=== PATIENT | female | born 1990 | race Caucasian/White ===

== ENCOUNTER → 2024-04-10 | Outpatient (CLI) | payer OTHER, SELFPAY ==
--- NOTE | 2024-04-10 16:00 | US_ITS ---
STUDY: SECOND AND THIRD TRIMESTER OBSTETRICAL ULTRASOUND REASON FOR EXAM: Female, 34 years old GROWTH 38 WKS TECHNIQUE: Transabdominal PRIOR ULTRASOUND: None. FINDINGS: There is a single intrauterine fetus. The fetus is in a cephalic presentation. There is demonstrated cardiac activity with a heart rate of 153 bpm. There is a normal amniotic fluid volume. The largest amniotic fluid pocket measures 9.9 cm. The amniotic fluid index (SHELLEY) is 22 cm. The placenta is anterior and not low-lying. There are Grade 2 placental changes. The cervix measures 3.2 cm in length. The adnexal regions are not visualized. BPD: 9.8 cm = 40 weeks, 0 day(s) HC: 35.5 cm = 41 weeks, 3 day(s) AC: 38 cm = 41 weeks, 5 day(s) FL: 7.1 cm = 36 weeks, 3 day(s) EGA by ultrasound: 40 weeks 1 day(s) WILFRED by ultrasound: 04/09/2024 Estimated weight: 4091 grams Weight percentile: 98% US/OB Limited With Biometrics IMPRESSION: Living intrauterine with estimated gestational age of 40 weeks and 1 day. Electronically Signed: Spencer Troncoso MD at 19:20 EDT ,
== END | disposition home or self-care (01) ==
LOC: US 15:59
PROVIDERS: Referring Provider Advanced Practice Midwife; Visit Provider Advanced Practice Midwife
DX: O99.013 Anemia complicating pregnancy, third trimester (principal); O09.93 Supervision of high risk pregnancy, unspecified, third trimester; O34.219 Maternal care for unspecified type scar from previous cesarean delivery; O26.843 Uterine size-date discrepancy, third trimester; Z3A.37 37 weeks gestation of pregnancy
CPT/HCPCS: 76816

== ENCOUNTER 2024-04-23 07:19 | Inpatient (IN) | payer OTHER, SELFPAY ==
[2024-04-23] VITALS (27 sets, daily range): BP systolic 107–145; BP diastolic 56–79; PULSE 24–111; RESP 14–18; TEMP 36.6–37.8; O2SAT 82–100; BMI 29.8
[2024-04-23] MEDS: Lactated Ringers 1,000 ML 50 ML IV (07:50)
[2024-04-23] MEDS: Oxytocin 15 Units/NS 250ml 15 UNITS/250 ML IV.SOLN 2 UNITS IV (07:52)
[2024-04-23 08:01] LABS: Absolute Lymphocyte Count 1.71 X10^3/uL (0.83-4.51); Absolute Neutrophil Count 7.2 X10^3/uL (2.0-7.7); Basophil# 0.05 X10^3/uL; Basophil% 0.5 % (0-1); Eosinophil# 0.16 X10^3/uL; Eosinophils% 1.6 % (0-5); Hematocrit 32.1 % (37-47); Hemoglobin 10.4 g/dL (12.0-15.0); Lymphocyte # 1.71 X10^3/ul (0.83-4.51); Lymphocyte % 17.2 % (19-41); Mean Corp Hgb Conc 32.4 g/dL (32-36); Mean Corpuscular Hgb 30.6 pg (27.0-32.0); Mean Corpuscular Volume 94.4 fL (81-99); Mean Platelet Vol. 11.1 fl (6.2-12.0); Monocyte# 0.59 X10^3/uL; Monocyte% 5.9 % (0-10); NRBC Flagged by Analyzer 0 % (0-5); Neutrophil # 7.18 X10^3/uL (2.7-7.7); Neutrophil % 72.1 % (47-70); Platelet Count 223 K/mm3 (150-450); RBC Distribution Width CV 17.3 % (11.6-14.6); RBC Distribution Width SD 58.9 fl (35.1-43.9)
--- NOTE | 2024-04-23 08:28 | HP.PCM.OB_ITS ---
HPI - General General Date of Admission: 04/23/24 Date of Service: 04/23/24 Chief Complaint: Induction of labor HPI Narrative UGO GALLARDO, is a 34 F who presents for induction of labor. She has had some irregular contractions. No gross vaginal bleeding. No leaking of fluid. complicated to date by history of previous section, anemia, heartburn and urinary tract infections during . She had a recent ultrasound that revealed estimated weight of approximate 4000 g and amniotic fluid volume with mild hide polyhydramnios with maximum vertical pocket of 9.9 cm. Maternal Data Information Final WILFRED: 04/24/24 Gestational age: 39 6/7 PFSH [facility] Medical History (Updated 04/23/24 @ 08:[address] Elza Melendez MD) Polyhydramnios Headache Home Medications ?Medication ?Instructions ?Recorded ?Last Taken ?Type acetaminophen 325 mg tablet 325 mg PO Q6H PRN pain 04/23/24 04/21/24 History (Aminofen) famotidine 20 mg tablet (Acid 20 mg PO DAILY 04/23/24 04/23/24 History Controller) ferrous sulfate 325 mg (65 mg 325 mg PO DAILY 04/23/24 04/21/24 History iron) tablet (Feosol) ondansetron HCl 4 mg tablet 4 mg PO PRN 04/23/24 04/18/24 History vit no.95-ferrous 1 tab PO DAILY 04/23/24 04/23/24 History fumarate 28 mg-folic acid 800 mcg tablet ( Multivitamins) Allergy/AdvReac Type Severity Reaction Status Date / Time No Known Allergies Allergy Verified 04/23/24 08:16 Surgical History (Updated 04/23/24 @ 08:[address] Elza Melendez MD) History of Social History (System 01/21/21 @ 13:46 by Rica Napoles) Smoking Status: Current every day smoker History Elective abortions Hx Para 1 Spontaneous abortions Hx # Term Pregnancies Ectopic pregnancies Hx # Pregnancies Multiple births # of living children ROS Constitutional Constitutional: Denies fatigue, fever(s) or malaise Eyes Eyes: Denies change in vision ENT HEENT: Denies dizziness or headache(s) Cardiovascular Cardiovascular: Denies chest pain, dyspnea or lightheadedness Respiratory/Chest Respiratory/Chest: Denies cough or dyspnea Gastrointestinal Gastrointestinal: Denies change in bowel habits Genitourinary Genitourinary: Denies burning urination or genital lesions Integumentary Integumentary: Denies rash Neurologic Neurologic: Denies confusion, dizziness, headache(s), numbness or weakness Vital Signs Vital Signs Vital Signs: 04/23/24 07:55 04/23/24 07:55 04/23/24 07:55 Temperature 99.3 F H Temperature Source Temporal Pulse Rate Respiratory Rate 16 Blood Pressure BP Systolic BP Diastolic Pulse Ox 04/23/24 07:58 04/23/24 07:58 04/23/24 07:58 Temperature Temperature Source Pulse Rate 107 H Respiratory Rate Blood Pressure 120/75 BP Systolic 120 BP Diastolic 75 Pulse Ox 97 04/23/24 08:03 04/23/24 08:03 Temperature Temperature Source Pulse Rate 103 H Respiratory Rate Blood Pressure BP Systolic BP Diastolic Pulse Ox 97 Weight Weight: 76.43 kg Body Mass Index (BMI) 29.8 Physical Exam Narrative cervix 4/70/-2 soft and mid position Const alert and no apparent distress General Appearance: cooperative HEENT normocephalic Resp normal respiratory effort Cardio regular rate GI soft to palpation GI Narrative: gravid, nontender, appropriate for gestational age Extremity no calf tenderness General Extremity: edema Skin no wounds Rashes: No rashes noted Psych activity/motor behavior normal Labs Labs Labs: Blood Type O POSITIVE Antibody Screen NEGATIVE Hct 32.1 % (37-47) L Hgb 10.4 g/dL (12.0-15.0) L Obstetrics Ultrasound Syphilis Total Ab Pending Rhogam given: No Assessment & Plan (1) 39 weeks gestation of : PLAN: Estimated weight is 4000 g. Risk benefits and alternatives to trial labor after previous section were discussed with the patient, risk benefits and alternatives to induction were discussed with the patient questions were answered to her satisfaction. Her partner was present for discussion they both desire to proceed with induction of labor. Will have Pitocin and artificial rupture membranes. May have routine pain control measures as needed and indicated. Pelvis clinically adequate to expect vaginal delivery. Artificial rupture membranes was performed with return of large amount of clear fluid. IUPC was placed. (2) Supervision of high risk , unspecified, third trimester: (3) Polyhydramnios affecting in third trimester:
[2024-04-23 09:42] LABS: Syphilis Antibodies Non-reactive
[2024-04-23] MEDS: Lactated Ringers 1,000 ML 999 ML IV (13:05)
--- NOTE | 2024-04-23 13:54 | EX.PCM.OBRPT ---
Maternal Data Information Final WILFRED: 04/24/24 Gestational age: 39&6 Vaginal Delivery Maternal Presentation Maternal Presentation: Elective Induction Type of Induction: Pitocin and Amniotomy Operative Information Date of Procedure: 04/23/24 Pre-Operative Diagnosis: (1) LGA infant (2) TOLAC Post-Operative Diagnosis: Same Surgery / Procedure Performed: Spontaneous Vaginal Delivery and Type of Anesthesia: None Estimated Blood Loss: 350ml Findings Description of Procedure: Patient prepped & draped when C/C/+2. She pushed well to deliver the head. head gently guided to allow delivery of anterior and posterior shoulders. No excess traction placed on head. Body delivered and 3VC clamped & cut in delayed fashion. Placenta delivered with gentle traction and good uterine tone obtained. Presentation: YESSENIA Amniotic Membrane Rupture Type: Artificial Amniotic Fluid Description: Clear Placental Delivery Description: Expressed Placenta Disposition: [facility] Specimen(s) Removed: Placenta Cord Vessel Description: 3 Vessels Cord Entanglement: Around neck x 2, loose Nuchal Cord Compression: Without compression A Gender: Male ([place]) (1 minute): 8 (5 minute): 9 Delayed Cord Clamping: Yes Post Vaginal Delivery Medications Given After Delivery: IV Pitocin Episiotomy Description: None Laceration: None Complication Complications: None
[2024-04-23] MEDS: Oxytocin 15 Units/NS 250ml 15 UNITS/250 ML IV.SOLN 83 UNITS IV (15:16)
[2024-04-23] MEDS: Ibuprofen 600 MG Tablet PO ×2 (15:52→22:18)
[2024-04-23] MEDS: Acetaminophen 500 MG Tablet 1000 MG PO (17:33)
[2024-04-24] VITALS (9 sets, daily range): BP systolic 103–124; BP diastolic 58–59; PULSE 76–97; RESP 16; TEMP 37–37.3; O2SAT 97–99
--- NOTE | 2024-04-24 09:04 | PCM.PROGNOTE ---
Subjective Subjective patient seen at bedside, doing well. Patient reports good pain control. lochia mild. Objective Data Objective Data Vital Signs: Vital Signs Temp Pulse Resp BP Pulse Ox O2 Del Method 98.6 F 81 16 103/59 L 97 Room Air 04/24/24 07:33 04/24/24 07:33 04/24/24 07:33 04/24/24 07:33 04/24/24 04:06 04/24/24 04:00 Oxygen Delivery Method Room Air Weight: 76.43 kg Body Mass Index (BMI) 29.8 Intake & Output: Intake and Output for Last 24 Hours 04/22/24 04/23/24 04/24/24 23:59 23:59 23:59 Intake Total 1901.58 / 1901.58 Output Total 1850 / 1850 Balance 51.58 / 51.58 Lab / Micro Data 04/23/24 07:45 Labs: Laboratory Results - last 24 hr 04/23/24 07:45: Syphilis Total Ab Non-reactive, Blood Type O POSITIVE, Antibody Screen NEGATIVE Physical Exam Const alert and oriented x3 General Appearance: cooperative HEENT normocephalic Neck General: normal visual inspection GI soft to palpation and non-distended GI Narrative: Fundus firm Extremity normal to inspection and no calf tenderness Skin no rashes or lesions noted Neuro oriented x3 and CN's II-XII intact bilaterally Psych mental status grossly normal Assessment & Plan Assessment/Plan (1) (vaginal after ): PLAN: Plan PPD# 1 , Doing well Routine care pain mgmt ambulation dc home
--- NOTE | 2024-04-24 09:05 | DCINST_ITS ---
Discharge Instructions Diet Discharge Diet: No restrictions Activity May resume sexual activity in: 6-8 weeks Dressing / Incision Call your doctor if you observe: Fever of 101 or Higher, Inability to urinate, Using more than 1 pad per hour and Uncontrolled pain Follow Up Care Please Follow Up With: Tala Lopes MD When: 1-2 weeks post and again at 6 weeks post . [phone] Test Results: Test results from this visit will be discussed in further detail at your follow- up appointment, if applicable. Discharge Plan Admission Admit Date/Time: 04/23/24 07:19 Attending Provider: Callie Mccullough Primary Care Provider: Care Physician,Ana Primary Discharge Orders/Prescriptions Prescriptions: New acetaminophen 500 mg Tablet 1,000 mg PO Q6H PRN PRN (Reason: Pain 1-10 Or Fever) Qty: 0 0RF ibuprofen 600 mg Tablet 600 mg PO Q6H PRN PRN (Reason: Pain Score 1-10) Qty: 0 0RF Continued ferrous sulfate [Feosol] 325 mg (65 mg iron) tablet 325 mg PO DAILY famotidine [Acid Controller] 20 mg tablet 20 mg PO DAILY PNV cmb#95-ferrous fumarate-FA [ Multivitamins] 28 mg iron- 800 mcg tablet 1 tab PO DAILY Discontinued ondansetron HCl 4 mg tablet 4 mg PO PRN acetaminophen [Aminofen] 325 mg tablet 325 mg PO Q6H PRN (Reason: pain) Referrals / Follow Up: Care Physician,No Primary [Primary Care Provider] -
--- NOTE | 2024-04-24 11:05 | CASEMGMT ---
Social Work Assessment Labor and Delivery Unit Patient Address: [address] [place] [id number] Phone number: [phone] Date of Referral: 04/23/24 Time of Referral:? 851 Referred By: Dr. Mccullough Date of Intervention: ??04/24/24 Time of Intervention:? 1014 Reason for Referral:? father of mother had alcohol abuse, father of mother Sw completed chart review and acknowledges social work consult due to family history of alcoholism. Sw presented to bedside and introduced self to mother of baby (PERLA- Liza) and father of baby (LAXMI- Manohar). Sw explained reason for sw involvement and completed psychosocial assessment. History obtained from: medical records, MOB and FOB. ??? Household composition: Currently residing in the family home is PERLA, LAXMI, PERLA's two older children (Sergio- 17, and Ruthann- 10). baby to be added to family home when ready for discharge. Parents deny any issues or concerns with current housing, reporting it is safe and secure. Patient's parent/guardian status:? PERLA reports that she and LAXMI have been together for almost 4 years after being introduced to each other by her sister. No concerns reported of domestic violence or intimate partner violence. This is first child for LAXMI. ? Medical History: ?PERLA is 34 year old female who is 3, para 2- now 3 following labor and delivery. PERLA received routine [facility]. PERLA presented to hospital for an induction of labor and was able to have successful on 04/23/24 at 39 weeks gestation. Baby boy, named Ulises, was born weighing 9lb 6oz with apgars of 8 and 9 at one and five minutes of life, respectfully. PERLA states that breast feeding is going well and that baby will be followed by Dr. Graham for pediatrics. Educational Status:? PERLA obtained her Bachelor's degree and LAXMI went to trade school and obtained certification. Parents deny problems with learning, reading or comprehension. Financial Status: Both parents are gainfully employed outside of the home. 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 Infant Supplies: Parents have obtained all necessary baby supplies, including: car seat, safe sleep space, clothes, diapers and wipes. Childcare/Caregiver(s):?MOB will be the primary caregiver to baby along with FOB. Parents are also looking for a childcare provider for when both of them have returned to work. Transportation:?? Both parents have their drivers license and reliable means of transportation, no barriers. Programs/Agencies Involved: ??Jose are not connected to any community resources that assist them financially at this time. ? Children Services/Legal Issues:??No history of children services involvement, no issues or concerns warranting referral to be made at this time. ? Behavioral Health Issues: ??Mental Health History: Parents deny any mental health diagnoses. ??? Substance Use History:??Parents deny substance use prior to and during . Family History:?PERLA reports that her father was an alcoholic and has since . Sw educated parents on utilizing healthy and appropriate coping mechanisms opposed to seeking comfort from drugs or alcohol during this period. ? Drug Screens: No drug screens observed in chart review. Family/Social Stressors:? Parents deny any issues, concerns or stressors at this time. Support Systems: PERLA identifies LAXMI as her biggest support person. PERLA also has some friends who are around and able to help if necessary. Depression/Shaken Baby/Safe Sleeping: Sw educated parents on signs and symptoms of baby blues and mood and anxiety disorders. Parents express understanding. LAXMI states that if PERLA were to struggle with her mental health during this period he would be able to recognize that. Sw educated parents on shaken baby prevention and ABCs of safe sleep. ASSESSMENT:? MOB and baby admitted following labor and delivery. MOB and FOB both present and engaged in completion of psychosocial assessment. MOB observed to provide hands on loving and appropriate hands on care of . PERLA's father was an alcoholic and has , sw talked to parents about using healthy coping mechanisms opposed to seeking comfort from drugs and alcohol during this period. Parents receptive to sw involvement and support. Parents have obtained all necessary baby supplies and have natural supports in place. PLAN:? ?No other services requested or indicated. MOB and baby to be discharged when medically ready. Parents were provided literature regarding: signs and symptoms of baby blues and mood and anxiety disorders, Help Me Grow, shaken baby prevention, ABCs of safe sleep and a list of [facility] resources that are available for them should any needs present themselves. Len Sifuentes, HEAD OPERATOR [employer], SCIENTIFIC ARTIST
[2024-04-24] MEDS: FLU VACC 2024-25(6MOS UP)/PF 45 MCG/0.5 ML SYRINGE IM (16:33)
--- NOTE | 2024-04-26 16:07 | NURSING ---
Edited Delivery Record to reflect successful . Imtiaz
== END 2024-04-24 16:44 | disposition home or self-care (01) | DRG 807 ==
PROVIDERS: Admitting Provider Obstetrics & Gynecology; Visit Provider Obstetrics & Gynecology
DX: O40.3XX0 Polyhydramnios, third trimester, not applicable or unspecified (principal); Z37.0 Single live birth; F17.200 Nicotine dependence, unspecified, uncomplicated; O36.63X0 Maternal care for excessive fetal growth, third trimester, not applicable or unspecified; O34.219 Maternal care for unspecified type scar from previous cesarean delivery; O69.81X0 Labor and delivery complicated by cord around neck, without compression, not applicable or unspecified; O99.334 Smoking (tobacco) complicating childbirth; Z23 Encounter for immunization; Z3A.39 39 weeks gestation of pregnancy
CPT/HCPCS: 59025; 59050; 85025; 86780; 86850; 86900; 86901; 90656; 99221; J7120; G0378